=== PATIENT | male | born 1955 | race Caucasian/White ===

== ENCOUNTER 2023-08-06 20:54 | Emergency (ER) | payer OTHER ==
[2023-08-06] MEDS ORDERED: Tetracaine 0.5% PF 4 ML BOT ONE (21:05)
[2023-08-06] MEDS ORDERED: Fluorescein Opthalmic Strip ONE (21:12)
== END 2023-08-06 21:40 | disposition home or self-care (01) ==
LOC: MADERS 20:54
DX: T15.02XA Foreign body in cornea, left eye, initial encounter (principal); H11.422 Conjunctival edema, left eye; E11.9 Type 2 diabetes mellitus without complications; E78.5 Hyperlipidemia, unspecified; I10 Essential (primary) hypertension; Z79.899 Other long term (current) drug therapy; Z79.84 Long term (current) use of oral hypoglycemic drugs
CPT/HCPCS: 99283